=== PATIENT | male | born 1965 | race Asian ===

== ENCOUNTER 2023-12-16 10:16 | Day surgery (SDC) | payer BC, SELFPAY ==
[2023-12-16] VITALS (8 sets, daily range): BP systolic 92–125; BP diastolic 53–80; BMI 25.8
[2023-12-16] MEDS: NSS 1000 IV ×2 (10:45→12:40)
[2023-12-16] MEDS: LOW STRENGTH ASPIRIN 81 MG PO (11:04)
--- NOTE | 2023-12-16 12:45 | ITS.CL.CATH ---
[facility] - Catheterization
Cardiac Catheterization
Procedure Report:
CARDIAC CATHETERIZATION REPORT
Date of Procedure: 12/16/2023
Referring: Andrew Mojica MD
Indication: Palpitations leading to stress test which was abnormal with chest discomfort and borderline ischemic ST segment depression
HEMODYNAMIC DATA
AO: 114/68
LV: 114/15
LEFT VENTRICULOGRAPHY: Normal left-ventricular wall motion with EF 64%
CORONARY ANGIOGRAPHY
Dominance: Right
Left Main: Normal
LAD: Normal. 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
Circumflex: Normal
RCA: Normal
Closure Device: None-the procedure was performed via the right radial artery. The Aneesh's test was normal prior to the procedure.
Radiation (mGy): 106.8
DAP (cm2.Gy): 8.1
Fluoroscopy time: 4.7 minutes
CONCLUSIONS
1: Normal left ventricular function with EF 64%
2: No evidence of CAD
3. 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 This is of no clinical significance
Copy to: Andrew Mojica MD, Nemo Arredondo MD
Ken Garcia MD, [facility], [facility]
== END 2023-12-16 15:27 | disposition home or self-care (01) ==
LOC: CATH 10:16
PROVIDERS: ATTENDING PHYSICIAN Internal Medicine Cardiovascular Disease; FAMILY PHYSICIAN Family Medicine; OTHER PHYSICIAN Internal Medicine Cardiovascular Disease
DX: R07.89 Other chest pain (principal); Q24.5 Malformation of coronary vessels; R00.2 Palpitations; E78.5 Hyperlipidemia, unspecified; F41.9 Anxiety disorder, unspecified; F41.0 Panic disorder [episodic paroxysmal anxiety]
CPT/HCPCS: 93458; C1894; Q9967